=== PATIENT | male | born 1995 | race African-American/Black ===

== ENCOUNTER 2020-06-09 19:08 | Emergency (ER) | payer SELFPAY ==
[~2020-06-09] VITALS: Ht 172.7 cm; Wt 68.0 kg
--- NOTE | 2020-06-09 19:27 | ED Respiratory ---
General Stated Complaint: LIGHTHEADED,SOB Source: patient Exam Limitations: no limitations History of Present Illness Date Seen by Provider: June 09, 2020 Time Seen by Provider: 19:24 Initial Comments This is a 25-year-old male presents to the ER via POV with vague complaints generalized fatigue and weakness for the past couple days. States that his whole body aches. Believes that he is dehydrated and "needs an antibiotic". Denies fever, chills, shortness of breath, chest pain, nausea, vomiting, abdominal pain. No Covid exposure or ill contacts. Allergies and Home Medications Allergies Coded Allergies: No Known Drug Allergies (Unverified , 06/09/20) Patient Home Medication List Home Medication List Reviewed: Yes Review of Systems Review of Systems Constitutional: malaise EENTM: no symptoms reported Respiratory: No cough; short of breath; No wheezing Cardiovascular: no symptoms reported Gastrointestinal: no symptoms reported Genitourinary: no symptoms reported Musculoskeletal: no symptoms reported Skin: no symptoms reported Psychiatric/Neurological: No Symptoms Reported Hematologic/Lymphatic: No Symptoms Reported Immunological/Allergic: no symptoms reported Physical Exam Vital Signs - First Documented 06/09/20 19:15 Temp 35.1 Pulse 94 Resp 16 B/P (MAP) 153/86 (108) Pulse Ox 99 O2 Delivery Room Air Capillary Refill : Height: '" Weight: lbs. oz. kg; BMI Method: General Appearance: WD/WN, no apparent distress Eyes: Bilateral Eye Normal Inspection, Bilateral Eye PERRL, Bilateral Eye EOMI HEENT: PERRL/EOMI, normal ENT inspection, pharynx normal Neck: full range of motion, normal inspection Respiratory: lungs clear, normal breath sounds, no respiratory distress Cardiovascular: normal peripheral pulses, regular rate, rhythm, no murmur Gastrointestinal: normal bowel sounds, non tender, soft Extremities: normal range of motion, non-tender, normal inspection, normal capillary refill Neurologic/Psychiatric: no motor/sensory deficits, alert, normal mood/affect, oriented x 3 Skin: normal color, warm/dry Progress/Results/Core Measures Suspected Sepsis SIRS Temperature: Pulse: Respiratory Rate: Laboratory Tests 06/09/20 20:20: White Blood Count 8.0 Blood Pressure / Mean: Laboratory Tests 06/09/20 20:20: Creatinine 1.34H, Platelet Count 192, Total Bilirubin 1.8H Results/Orders Lab Results Laboratory Tests Test 06/09/20 20:20 06/09/20 21:24 Range/Units White Blood Count 8.0 4.3-11.0 10^3/uL Red Blood Count 5.42 4.30-5.52 10^6/uL Hemoglobin 15.4 13.3-17.7 g/dL Hematocrit 48 40-54 % Mean Corpuscular Volume 89 80-99 fL Mean Corpuscular Hemoglobin 28 25-34 pg Mean Corpuscular Hemoglobin Concent 32 32-36 g/dL Red Cell Distribution Width 12.8 10.0-14.5 % Platelet Count 192 130-400 10^3/uL Mean Platelet Volume 11.3 9.0-12.2 fL Immature Granulocyte % (Auto) 0 % Neutrophils (%) (Auto) 68 42-75 % Lymphocytes (%) (Auto) 23 12-44 % Monocytes (%) (Auto) 8 0-12 % Eosinophils (%) (Auto) 1 0-10 % Basophils (%) (Auto) 1 0-10 % Neutrophils # (Auto) 5.4 1.8-7.8 10^3/uL Lymphocytes # (Auto) 1.8 1.0-4.0 10^3/uL Monocytes # (Auto) 0.6 0.0-1.0 10^3/uL Eosinophils # (Auto) 0.1 0.0-0.3 10^3/uL Basophils # (Auto) 0.0 0.0-0.1 10^3/uL Immature Granulocyte # (Auto) 0.0 0.0-0.1 10^3/uL Neutrophils % (Manual) 66 % Lymphocytes % (Manual) 20 % Monocytes % (Manual) 12 % Eosinophils % (Manual) 1 % Basophils % (Manual) 1 % Blood Morphology Comment NORMAL Sodium Level 141 135-145 MMOL/L Potassium Level 3.9 3.6-5.0 MMOL/L Chloride Level 102 98-107 MMOL/L Carbon Dioxide Level 27 21-32 MMOL/L Anion Gap 12 5-14 MMOL/L Blood Urea Nitrogen 12 7-18 MG/DL Creatinine 1.34 H 0.60-1.30 MG/DL Estimat Glomerular Filtration Rate > 60 BUN/Creatinine Ratio 9 Glucose Level 86 70-105 MG/DL Calcium Level 10.2 H 8.5-10.1 MG/DL Corrected Calcium 8.5-10.1 MG/DL Total Bilirubin 1.8 H 0.1-1.0 MG/DL Aspartate Amino Transf (AST/SGOT) 22 5-34 U/L Alanine Aminotransferase (ALT/SGPT) 29 0-55 U/L Alkaline Phosphatase 89 40-136 U/L Total Protein 8.3 H 6.4-8.2 GM/DL Albumin 5.3 H 3.2-4.5 GM/DL Coronavirus 2019 ([facility]IR[facility]) Not Detected Not Detecte Urine Color YELLOW Urine Clarity CLEAR Urine pH 6.0 5-9 Urine Specific [place] 1.015 L 1.016-1.022 Urine Protein NEGATIVE NEGATIVE Urine Glucose (UA) NEGATIVE NEGATIVE Urine Ketones 1+ H NEGATIVE Urine Nitrite NEGATIVE NEGATIVE Urine Bilirubin NEGATIVE NEGATIVE Urine Urobilinogen 2.0 < = 1.0 MG/DL Urine Leukocyte Esterase NEGATIVE NEGATIVE Urine RBC (Auto) NEGATIVE NEGATIVE Urine RBC NONE /HPF Urine WBC NONE /HPF Urine Squamous Epithelial Cells NONE /HPF Urine Renal Epithelial Cells NONE /HPF Urine Crystals NONE /LPF Urine Bacteria NEGATIVE /HPF Urine Casts NONE /LPF Urine Mucus NEGATIVE /LPF Urine Culture Indicated NO Micro Results Microbiology 06/09/20 Influenza Types A,B Antigen (DANI) - Final, Complete My Orders Orders - NIKITA FREY VOLUNTEER MANAGER Covid 19 Inhouse Test (06/09/20 19:24) Influenza A And B Antigens (06/09/20 19:24) Cbc With Automated Diff (06/09/20 19:51) Comprehensive Metabolic Panel (06/09/20 19:51) Urinalysis (06/09/20 19:51) Chest 1 View, Ap/Pa Only (06/09/20 19:51) Manual Differential (06/09/20 20:20) Ns Iv 1000 Ml (Sodium Chloride 0.9%) (06/09/20 21:15) Medications Given in ED Vital Signs/I&O 06/09/20 06/09/20 19:15 22:45 Temp 35.1 36.9 Pulse 94 82 Resp 16 17 B/P (MAP) 153/86 (108) 132/79 (108) Pulse Ox 99 98 O2 Delivery Room Air Room Air 06/10/20 00:00 Intake Total 1000 ml Balance 1000 ml Capillary Refill : Progress Note : Progress Note Labs and CXR unremarkable. Given 1 liter fluids. Reviewed discharge plan of care and he is agreeable with plan. Diagnostic Imaging Diagonstic Imaging: Xray Plain Films/CT/US/NM/MRI: chest Comments NAME: [facility] REC#: [id number] PT STATUS: REG ER : 1995 PHYSICIAN: NIKITA FREY VOLUNTEER MANAGER ADMIT DATE: 06/09/20/ER Draft Date of Exam:06/09/20 CHEST 1 VIEW, AP/PA ONLY INDICATION: Shortness of breath Frontal chest obtained at 08:54 p.m. Heart and mediastinal silhouette are normal in appearance. The lungs are clear. There is no pneumothorax or pleural fluid. IMPRESSION: Negative chest. Dictated on workstation # [id number] Dict: 06/09/202120 Trans: 06/09/202129 [facility] [id number] Interpreted by: WENDY SOW MD Electronically signed by: Reviewed: Reviewed by Me Departure Impression Primary Impression: Dehydration Additional Impression: Fatigue Disposition: 01 HOME, SELF-CARE Condition: Improved Departure-Patient Inst. Decision time for Depature: 21:25 Patient Instructions: Fatigue, Dehydration, Adult ED Add. Discharge Instructions: Plan: 1. Discharge home. 2. Drink plenty of fluids. 3. Return for any worsening or concerning symptoms. NIKITA FREY VOLUNTEER MANAGER June 09, 2020 19:27
[2020-06-09 20:29] LABS: BASOPHILS % (AUTO) 1 % (0-10); EOSINOPHILS # (AUTO) 0.1 10^3/uL (0.0-0.3); EOSINOPHILS % (AUTO) 1 % (0-10); HEMATOCRIT 48 % (40-54); HEMOGLOBIN 15.4 g/dL (13.3-17.7); LYMPHOCYTES # (AUTO) 1.8 10^3/uL (1.0-4.0); LYMPHOCYTES % (AUTO) 23 % (12-44); MEAN CORPUSCULAR HEMOGLOBIN 28 pg (25-34); MEAN CORPUSCULAR HGB CONC 32 g/dL (32-36); MEAN CORPUSCULAR VOLUME 89 fL (80-99); MEAN PLATELET VOLUME 11.3 fL (9.0-12.2); MONOCYTES # (AUTO) 0.6 10^3/uL (0.0-1.0); MONOCYTES % (AUTO) 8 % (0-12); NEUTROPHILS # (AUTO) 5.4 10^3/uL (1.8-7.8); NEUTROPHILS % (AUTO) 68 % (42-75); PLATELET COUNT 192 10^3/uL (130-400)
[2020-06-09 20:51] LABS: ALANINE AMINOTRANSFERASE 29 U/L (0-55); ALBUMIN 5.3 GM/DL (3.2-4.5); ALKALINE PHOSPHATASE 89 U/L (40-136); BILIRUBIN,TOTAL 1.8 MG/DL (0.1-1.0); BUN/CREATININE RATIO 9; CALCIUM 10.2 MG/DL (8.5-10.1); CARBON DIOXIDE 27 MMOL/L (21-32); CHLORIDE 102 MMOL/L (98-107); CREATININE SERUM 1.34 MG/DL (0.60-1.30); GFR ESTIMATED > 60; GLUCOSE 86 MG/DL (70-105); POTASSIUM 3.9 MMOL/L (3.6-5.0); SODIUM 141 MMOL/L (135-145); TOTAL PROTEIN 8.3 GM/DL (6.4-8.2)
[2020-06-09 20:54] LABS: BASOPHILS % (MANUAL) 1 %; EOSINOPHILS % (MANUAL) 1 %; LYMPHOCYTES % (MANUAL) 20 %; MONOCYTES % (MANUAL) 12 %; NEUTROPHILS % (MANUAL) 66 %; RBC MORPH NORMAL
[2020-06-09] MEDS ORDERED: NS IV 1000 ML 1,000 ML IV ONE (21:15)
[2020-06-09 21:31] LABS: BILIRUBIN,URINE NEGATIVE (NEGATIVE); CLARITY,URINE CLEAR; COLOR,URINE YELLOW; GLUCOSE, URINE (UA) NEGATIVE (NEGATIVE); KETONES,URINE 1+ (NEGATIVE); LEUKOCYTE ESTERASE ,URINE NEGATIVE (NEGATIVE); NITRITE,URINE NEGATIVE (NEGATIVE); PROTEIN,URINE NEGATIVE (NEGATIVE)
--- NOTE | 2020-06-09 21:31 | Diagnostic Imaging Report ---
INDICATION: Shortness of breath Frontal chest obtained at 08:54 p.m. Heart and mediastinal silhouette are normal in appearance. The lungs are clear. There is no pneumothorax or pleural fluid. IMPRESSION: Negative chest. Dictated by: Dictated on workstation # [id number]
[2020-06-09 21:48] LABS: BACTERIA,URINE NEGATIVE /HPF
[2020-06-09 22:45] VITALS: BP 132/79
== END 2020-06-09 23:35 | disposition home or self-care (01) ==
LOC: ER 19:10
DX: E86.0 Dehydration (principal); R53.83 Other fatigue; Z20.822 Contact with and (suspected) exposure to COVID-19
CPT/HCPCS: 71045; 80053; 81000; 85007; 85027; 87804; 99284; U0002; 36415; 87635